=== PATIENT | female | born 1985 | race Caucasian/White ===

== ENCOUNTER 2023-09-18 07:42 | Inpatient (IN) | payer OTHER, MEDICAID, SELFPAY ==
[2023-09-18 07:42] VITALS: BP 153/98; PULSE 112; RESP 18; TEMP 37.1; O2SAT 99; BMI 25.0
--- NOTE | 2023-09-18 07:43 | ECG_ITS ---
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 Measurements Intervals Freedom Rate: 95 P: 60 MD: 156 QRS: 62 QRSD: 84 T: 38 QT: 346 QTc: 435 Interpretive Statements SINUS RHYTHM NONSPECIFIC T-WAVE ABNORMALITY No previous ECG available for comparison Electronically Signed On 09-18-2023 9:22:45 CDT by Kamaljit Silva M.D. [id number]
--- NOTE | 2023-09-18 07:47 | W.ED.PSYCHS ---
HPI - Psych General: Chief Complaint: Psychiatric Symptoms Stated Complaint: MHE Time Seen by Provider: 09/18/23 07:43 History of Present Illness: 37-year-old female with no known medical history who presents to the emergency room in apparent state of psychosis with the police today. Per their report she was found out in the hilliard with no clothes on. Apparently she had broken into someone's home and then cut a hole in a pool per their report. Apparently she had done all of this nude. When she arrived here she did appear somewhat psychotic. She was manic appearing and trying to dance with staff and somewhat uncooperative initially. Review of Systems General: Reports: ROS unobtainable due to medical condition Physical Exam Narrative: EXAM NARRATIVE: General: Alert, no acute distress. Skin: Warm, dry. Head: Normocephalic, atraumatic. Neck: Supple, trachea midline. Eye: Extraocular movements are intact. Ears, nose, mouth and throat: mucosa moist. Cardiovascular: Regular, tachycardic, normal peripheral perfusion. Respiratory: Lungs are clear to auscultation, respirations are non-labored, breath sounds are equal, Symmetrical chest wall expansion. Gastrointestinal: Soft, Nontender, Non distended Musculoskeletal: Normal ROM, no deformity. Neurological: Alert and oriented, No focal neurological deficit observed. Psychiatric: Patient appears manic. Flight of ideas. Somewhat uncooperative at times. Course Vital Signs: Vital signs: Vital Signs Temperature 98.8 F 09/18/23 08:06 Pulse Rate 112 H 09/18/23 08:06 Respiratory Rate 18 09/18/23 08:06 Blood Pressure 153/98 09/18/23 08:06 Pulse Oximetry 99 09/18/23 08:06 Oxygen Delivery Me thod Room Air 09/18/23 08:06 MDM - Psych Medical Decision Making Medical decision making: Differential diagnosis for patient with reported psychosis with plan for psychiatric admission including but not limited to and based on the above HPI, review of systems and physical exam: concerns for infection, alcohol intoxication, cardiac issues or other medical problems prior to psychiatric admission. Orders placed to evaluate differential diagnosis based on the above differential, HPI and physical exam labwork, ekg ordered to evaluate the pathologies and to clear the patient medically prior to psychiatric admission EKG: Time 8:53 AM. Rate 95. Normal sinus rhythm, No ST-T changes, no ectopy, normal MS & QRS intervals, This was reviewed and interpreted by myself the ER physician at 8:55 AM Lab Review: Laboratory results were reviewed and interpreted by myself the emergency room physician. - Medically cleared. - EKG shows no ischemic changes. - Blood alcohol level is negative, as well as salicylate and Tylenol. - Drug screen and urinalysis are pending. - No anemia. - BUN and creatinine are within normal limits. I reviewed the patient's medical record. Reexamination: Patient after receiving medications is much calmer. She is somewhat somnolent but is no longer psychotic appearing. She says she does not really remember this morning but she thinks she had a psychotic break secondary to her PTSD. She denies any drugs at this time. Consultation: I spoke with Dr. Lewis who is on-call for psychiatry and discussed the patient's case and he agrees to admission. Assessment and plan: Psychosis. -IM Geodon and Ativan were given. Improvement in symptoms. ? 96-hour hold is being placed. -Admission to neuropsychiatric unit for continued evaluation and treatment. - All lab work was reviewed and interpreted personally by myself, the ER physician - Evaluation and treatment of this problem were appropriate in the emergency setting Lab Data 09/18/23 08:51 09/18/23 08:51 Laboratory Results WBC 10.01 10^3/uL (3.29-11.43) 09/18/23 08:51 RBC 4.19 10^6/uL (3.85-5.65) 09/18/23 08:51 Hgb 11.60 g/dL (11.27-16.99) 09/18/23 08:51 Hct 35.4 % (36-47) L 09/18/23 08:51 MCV 84.5 fl (85-98) L 09/18/23 08:51 MCH 27.7 pg (27-33) 09/18/23 08:51 MCHC 32.8 g/dL (30-55) 09/18/23 08:51 RDW 14.6 % (12.1-15.1) 09/18/23 08:51 Plt Count 328 10^3/cmm (157-399) 09/18/23 08:51 MPV 11.2 fL (7.4-10.4) H 09/18/23 08:51 Neut % (Auto) 80.6 % 09/18/23 08:51 Lymph % (Auto) 12.6 % 09/18/23 08:51 [place] % (Auto) 5.7 % 09/18/23 08:51 Eos % (Auto) 0.1 % 09/18/23 08:51 Baso % (Auto) 0.7 % 09/18/23 08:51 Neut # (Auto) 8.07 10^3/uL (1.8-7.7) H 09/18/23 08:51 Lymph # (Auto) 1.3 10^3/uL (0.8-4.8) 09/18/23 08:51 [place] # (Auto) 0.6 10^3/uL (0.2-0.9) 09/18/23 08:51 Eos # (Auto) 0.0 10^3/uL (0.0-0.8) 09/18/23 08:51 Baso # (Auto) 0.1 10^3/uL (0.0-0.1) 09/18/23 08:51 Nucleated RBC % (auto) 0 % 09/18/23 08:51 Nucleated RBCs # 0.0 /100WBC 09/18/23 08:51 Sodium 142 mmol/L (136-145) 09/18/23 08:51 Potassium 3.5 mmol/L (3.5-5.1) 09/18/23 08:51 Chloride 109 mmol/L (98-107) H 09/18/23 08:51 Carbon Dioxide 20 mmol/L (22-29) L 09/18/23 08:51 Anion Gap 16.5 (5-19) 09/18/23 08:51 BUN 12 mg/dL (6-20) 09/18/23 08:51 Creatinine 0.7 mg/dL (0.5-0.9) 09/18/23 08:51 GFR Calculation 93.6 mL/min (90-130) 09/18/23 08:51 Glucose 105 mg/dL (65-115) 09/18/23 08:51 Calculated Osmolality 294 mOsm/kg (285-295) 09/18/23 08:51 Calcium 8.9 mg/dL (8.5-10.5) 09/18/23 08:51 Total Bilirubin 0.4 mg/dL (0.15-1.2) 09/18/23 08:51 AST 14 U/L (0-32) 09/18/23 08:51 ALT 15 U/L (0-33) 09/18/23 08:51 Alkaline Phosphatase 70 U/L (35-105) 09/18/23 08:51 Total Protein 7.2 g/dL (6.6-8.7) 09/18/23 08:51 Albumin 4.3 g/dL (3.5-5.2) 09/18/23 08:51 Globulin 2.9 g/dL (1.3-4.6) 09/18/23 08:51 TSH 2.17 uIU/mL (0.27-4.20) 09/18/23 08:51 Salicylates < 0.3 mg/dL (3-10) L 09/18/23 08:51 Acetaminophen < 5.0 ug/mL (10-30) L 09/18/23 08:51 Ethyl Alcohol < 10 mg/dL (0-10) 09/18/23 08:51 No radiology studies performed this visit Discharge Plan Discharge Patient Disposition: Admitted As Inpatient Clinical Impression: Acute psychosis Condition: Stable Coding Level of Care Code ED Medical Social Worker for Cherie Kaur
[2023-09-18] MEDS: ziprasidone 20 mg/mL SDV IM (08:04)
[2023-09-18] MEDS: LORazepam 2 mg/mL INJ 1 mL IM (08:04)
[2023-09-18] MEDS: water for injection-sterile 10 ML 2 ML (08:04)
[2023-09-18 08:06] VITALS: BP 153/98; PULSE 112; RESP 18; TEMP 37.1; O2SAT 99
--- NOTE | 2023-09-18 08:09 | PC.NURSE ---
PATIENT ATTEMPTED TO EXIT THE FACILITY AND STRUGGLES TO STAY IN ROOM. PATIENT GIVEN 20 GEODON AND 2 ATIVAN PER PROVIDER. BRENT VILLATORO BROUGHT IN CLOTHING AND BAG FROM PATIENTS CAR. ITEMS CHECKED BY BRENT CHIN, PLACED WITH SITTER.
--- NOTE | 2023-09-18 08:25 | PC.NURSE ---
PATIENT PLACED ON O2 MONITOR. PATIENT RESTING COMFORTABLY WITH RESPIRATIONS. PATIENT MUCH MORE COOPERATIVE. THIS NURSE ASKS IF SHE WAS ON ANY MEDICATIONS, PATIENT CALMLY STATES THAT I THINK IT WAS A PTSD BREAK. NURSE ASKED IF SHE NEEDED ANYTHING ELSE, SHE STATED NO. LIGHTS DIMMED. 1:[address]
[2023-09-18 09:06] LABS: Basophils # 0.1 10^3/uL (0.0-0.1); Basophils % 0.7 %; Eosinophils % 0.1 %; Hematocrit 35.4 % (36-47); Lymphocytes # 1.3 10^3/uL (0.8-4.8); Lymphocytes % 12.6 %; Mean Corpuscular HGB Conc 32.8 g/dL (30-55); Mean Corpuscular Hemoglobin 27.7 pg (27-33); Mean Corpuscular Volume 84.5 fl (85-98); Mean Platelet Volume 11.2 fL (7.4-10.4); Monocytes # 0.6 10^3/uL (0.2-0.9); Monocytes % 5.7 %; Neutrophils # 8.07 10^3/uL (1.8-7.7); Neutrophils % 80.6 %; Nucleated Red Blood Cells % 0 %; Platelet Count 328 10^3/cmm (157-399); Red Blood Count 4.19 10^6/uL (3.85-5.65); Red Cell Distribution Width 14.6 % (12.1-15.1); White Blood Count 10.01 10^3/uL (3.29-11.43)
[2023-09-18 09:28] LABS: Acetaminophen < 5.0 ug/mL (10-30); Alanine Aminotransferase 15 U/L (0-33); Albumin Level 4.3 g/dL (3.5-5.2); Alcohol Level < 10 mg/dL (0-10); Alkaline Phosphatase 70 U/L (35-105); Anion Gap 16.5 (5-19); Aspartate Amino Transferase 14 U/L (0-32); Blood Urea Nitrogen 12 mg/dL (6-20); Calcium 8.9 mg/dL (8.5-10.5); Carbon Dioxide 20 mmol/L (22-29); Chloride 109 mmol/L (98-107); Creatinine Clr Calc Pharmacy 105.6495; Globulin 2.9 g/dL (1.3-4.6); Glomerular Filtration Rate 93.6 mL/min (90-130); Glucose 105 mg/dL (65-115); Osmolality Calculated 294 mOsm/kg (285-295); Potassium 3.5 mmol/L (3.5-5.1); Salicylate < 0.3 mg/dL (3-10); Sodium 142 mmol/L (136-145); Thyroid Stimulating Hormone 2.17 uIU/mL (0.27-4.20); Total Bilirubin 0.4 mg/dL (0.15-1.2); Total Protein 7.2 g/dL (6.6-8.7)
[2023-09-18 12:21] LABS: HCG Qualitative Urine. Negative (Negative)
[2023-09-18 12:34] LABS: Amphetamines Screen Urine Positive (Negative); Barbiturates Screen Urine Negative (Negative); Benzodiazepines Screen Urine Positive (Negative); Cocaine Screen Urine Negative (Negative); Opiate Screen Urine Negative (Negative); PCP Screen Urine Negative (Negative); THC Screen Urine Negative (Negative)
[2023-09-18 12:37] LABS: Add Urine Culture? No; Bacteria Urine TRACE /hpf; Bilirubin Urine Neg (Negative); Blood Urine Neg (Negative); Glucose Urine UA Norm (Normal); Ketones Urine 2+ (Negative); Leukocyte Esterase Urine Negative (Negative); Nitrate Urine Negative (Negative); Protein Urine Neg (Negative); Specific Gravity, Urine 1.015 (1.005-1.030); Urine Appearance Clear (CLEAR); Urine Color Yellow (Yellow); Urobilinogen Urine Norm (Negative); pH Urine 6 (5-7)
[2023-09-18 13:39] VITALS: PULSE 93; RESP 14; O2SAT 96
[2023-09-18 13:45] VITALS: BP 121/73; PULSE 98; RESP 16; TEMP 36.9; O2SAT 100
[2023-09-18 14:00] VITALS: BP 121/73; PULSE 98; RESP 16; TEMP 36.9; O2SAT 100
[2023-09-18] MEDS: nicotine 2 mg Gum BUCCAL (14:53)
--- NOTE | 2023-09-18 18:18 | PC.NURSE ---
Patient brought to unit via wheelchair with security and ER staff. Patient cooperative and tearful on arrival. Patient cooperative during admission assessment. No contraband uncovered. no open wounds. Patient's questions answered.
[2023-09-18 19:32] VITALS: BP 132/82; PULSE 102; RESP 14; TEMP 36.8; O2SAT 97
[2023-09-19 06:00] VITALS: BP 110/70; PULSE 96; RESP 16; TEMP 36.7; O2SAT 95
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
[2023-09-19] MEDS: nicotine 2 mg Gum BUCCAL ×2 (07:32→15:19)
--- NOTE | 2023-09-19 11:05 | PC.NURSE ---
PT CURRENTLY DENIES SI/HI/AH/VH. PT CURRENTLY DENIES ANXIETY AND DEPRESSION. PT APPEARS WITH LARGE SMILE EVERY TIME SHE LOOK AT STAFF. PT WILL GIGGLED SLIGHTLY DURING MORNING ASSESSMENT QUESTIONS WITH UNMOVING GRIN. PT WAS COOPERATIVE WITH ASSESSMENT. PT CURRENT NEEDS ARE MET AT THIS TIME.
[2023-09-19] MEDS: ARIPiprazole 10 mg Tablet PO (13:43)
[2023-09-19 14:00] VITALS: BP 130/83; PULSE 90; RESP 16; TEMP 37; O2SAT 99
[2023-09-19 19:53] VITALS: BP 111/79; PULSE 80; RESP 17; TEMP 36.9; O2SAT 99
[2023-09-19] MEDS: hyDROXYzine 25 mg Capsule 50 MG PO (20:52)
[2023-09-20 06:24] VITALS: BP 117/73; PULSE 71; RESP 14; TEMP 36.9; O2SAT 98
[2023-09-20] MEDS: ARIPiprazole 10 mg Tablet PO (07:54)
--- NOTE | 2023-09-20 08:04 | PC.NURSE ---
During assessment, patient denies anxiety, depression, suicidal ideation, and homicidal ideation. Patient also denies AVH. Patient denies any questions, concerns, pain.
--- NOTE | 2023-09-20 08:05 | PC.NURSE ---
During assessment, patient denies anxiety, depression, suicidal ideation, and homicidal ideation. Patient also denies AVH. Patient denies any questions, concerns, pain.
--- NOTE | 2023-09-20 11:54 | P.NPUPN_ITS ---
Subjective NPU 2 Subjective: Patient presented today reporting that she was doing okay with the medication. Staff report her intrusive smile is less prominent today this is notable on direct observation. She was mostly focused on how long it was anticipated that she needed to be here. We discussed the importance of us knowing that she was having some significant resolution of her psychosis prior to discharge. She denied any side effects to the medication. Mental Status Exam 2 MSE Comments: This is a well-nourished well-developed white female in hospital scrubs with limited grooming but very intense eye contact. No abnormal movements except for mild psychomotor agitation. Mostly cooperative with exam in mild distress. Speech was normal rate and volume. Mood described as joyful, affect somewhat euphoric. Thought process mostly organized. Thought content: Patient denied current suicidal or homicidal ideation, there were no delusions reported however some concern for hyperreligious thinking, julieta with some reports of being in love and some guardedness which might reflect concerns about legal ramifications of what she were to say in the interview, she denied auditory or visual hallucinations. Attention and concentration were mostly intact and memory appeared mostly reliable but none were formally tested. She is alert and oriented to person and place. Insight, judgment appear limited and impulse control impaired. Vitals/I&O/Wt Last Vital Signs Temp 98.5 F 09/20/23 06:24 Pulse 71 09/20/23 06:24 Resp 14 09/20/23 06:24 BP 117/73 09/20/23 06:24 Pulse Ox 98 09/20/23 06:24 O2 Del Method Room Air 09/20/23 06:24 Data NPU 09/18/23 08:51 09/18/23 08:51 A&P Assessment and plan (1) Acute psychosis: (2) PTSD (post-traumatic stress disorder): (3) History of borderline personality disorder: (4) Methamphetamine-induced psychotic disorder: Plan This is a 37-year-old white female with a history of mental health issues, including self-harm and a history of psychiatric medication use. The patient's recent behavior of walking naked through the countryside and shouting scripture is concerning and may suggest a psychotic episode. The patient admits to a history of methamphetamine use, which could contribute to their current mental state. She was open to taking medication to address the psychosis noted at presentation. 1. Encourage individual, group and milieu therapy. 2. Recommend sober living treatment at the highest level of care to which the patient is willing to commit. 3. Continue q-15 minute checks for safety.? 4.?Start Abilify 10 mg p.o. daily to assist with rapid addressing of noted psychosis likely secondary to substances. 5.?Will attempt to gather collateral information. Involuntary Hold Information 2 96 Hour Hold: 96 Hour Involuntary Admission: No Attestations NPU 2 Medical Necessity Statement*: Inpatient hospitalization is medically necessary and the clinically appropriate intervention at this time. We will monitor and adjust medications as indicated. Her likely length of stay 3-5 days. Coding Level of Care Code Acute Code for [facility] Fwd Diagnoses Acute psychosis F23 PTSD (post-traumatic stress disorder) F43.10 History of borderline personality disorder Z86.59 Methamphetamine-induced psychotic disorder F15.95
[2023-09-20] MEDS: nicotine 2 mg Gum BUCCAL ×2 (13:45→18:49)
[2023-09-20 14:00] VITALS: BP 125/61; PULSE 88; RESP 20; TEMP 37.2; O2SAT 98
[2023-09-20 20:21] VITALS: BP 118/75; PULSE 84; RESP 16; TEMP 36.9; O2SAT 99
[2023-09-20] MEDS: hyDROXYzine 25 mg Capsule 50 MG PO (20:57)
[2023-09-21 06:22] VITALS: BP 98/65; PULSE 71; RESP 16; TEMP 36.9; O2SAT 98
[2023-09-21] MEDS: ARIPiprazole 10 mg Tablet PO (08:11)
--- NOTE | 2023-09-21 08:53 | PC.NURSE ---
RESTING IN BED, AROUSES TO VOICE. DENIES PAIN. DENIES SI/HI AND AVH AT THIS TIME. PTS 96 HOUR HOLD IS UP TOMORROW AND PT IS ANXIOUS TO DISCHARGE TODAY OR TOMORROW. RATES ANXIETY AND DEPRESSION 0/10. PT IS CALM AND COOPERATIVE. ALL QUESTIONS ANSWERED AND SUPPORT VOICED.
[2023-09-21] MEDS: nicotine 2 mg Gum BUCCAL ×2 (09:23→17:27)
--- NOTE | 2023-09-21 12:59 | P.NPUPN_ITS ---
Subjective NPU 2 Subjective: Patient presented today reporting that she is feeling better overall. No inappropriate smiling noted per staff reports her direct observation. We discussed her continuing the Abilify and having outpatient services to determine what to do with that long-term. We discussed the likelihood of discharge in the morning with continued improvement. Mental Status Exam 2 MSE Comments: This is a well-nourished well-developed white female in hospital scrubs with adequate grooming and eye contact. No abnormal movements except for mild psychomotor agitation. Mostly cooperative with exam in no acute distress. Speech was normal rate and volume. Mood described as good, affect congruent. Thought process mostly organized. Thought content: Patient denied current suicidal or homicidal ideation, there were no delusions reported or noted, she denied auditory or visual hallucinations. Attention and concentration were mostly intact and memory appeared mostly reliable but none were formally tested. She is alert and oriented x 3. Insight, judgment appear limited and impulse control improving. Vitals/I&O/Wt Last Vital Signs Temp 98.4 F 09/21/23 06:22 Pulse 71 09/21/23 06:22 Resp 16 09/21/23 06:22 BP 98/65 09/21/23 06:22 Pulse Ox 98 09/21/23 06:22 O2 Del Method Room Air 09/21/23 06:22 Data NPU 09/18/23 08:51 09/18/23 08:51 A&P Assessment and plan (1) Acute psychosis: (2) PTSD (post-traumatic stress disorder): (3) History of borderline personality disorder: (4) Methamphetamine-induced psychotic disorder: Plan This is a 37-year-old white female with a history of mental health issues, including self-harm and a history of psychiatric medication use. The patient's recent behavior of walking naked through the countryside and shouting scripture is concerning and may suggest a psychotic episode. The patient admits to a history of methamphetamine use, which could contribute to their current mental state. She was open to taking medication to address the psychosis noted at presentation. 1. Encourage individual, group and milieu therapy. 2. Recommend sober living treatment at the highest level of care to which the patient is willing to commit. 3. Continue q-15 minute checks for safety.? 4.?Started Abilify 10 mg p.o. daily to assist with rapid addressing of noted psychosis likely secondary to substances. 5.? Current plan for discharge in the morning. Involuntary Hold Information 2 96 Hour Hold: 96 Hour Involuntary Admission: No Attestations NPU 2 Medical Necessity Statement*: Inpatient hospitalization is medically necessary and the clinically appropriate intervention at this time. We will monitor and adjust medications as indicated. Her likely length of stay 1-3 days. Coding Level of Care Code Acute Code for g Fwd Diagnoses Acute psychosis F23 PTSD (post-traumatic stress disorder) F43.10 History of borderline personality disorder Z86.59 Methamphetamine-induced psychotic disorder F15.953
[2023-09-21 13:49] VITALS: BP 116/74; PULSE 83; RESP 20; TEMP 37; O2SAT 99
[2023-09-21 20:22] VITALS: BP 113/72; PULSE 71; RESP 15; TEMP 36.8; O2SAT 99
[2023-09-21] MEDS: hyDROXYzine 25 mg Capsule 50 MG PO (20:39)
[2023-09-22] MEDS: trazodone 50 mg Tablet PO (00:01)
[2023-09-22 06:00] VITALS: BP 98/66; PULSE 78; RESP 18; TEMP 36.8; O2SAT 98
[2023-09-22] MEDS: nicotine 2 mg Gum BUCCAL (07:37)
[2023-09-22] MEDS: ARIPiprazole 10 mg Tablet PO (08:59)
--- NOTE | 2023-09-22 11:16 | W.PM.NPUDCS ---
Diagnoses at Discharge Discharge Diagnosis (1) Acute psychosis: Status: Acute (2) PTSD (post-traumatic stress disorder): Status: Acute (3) History of borderline personality disorder: Status: Acute (4) Methamphetamine-induced psychotic disorder: Status: Acute Reason for Visit Reason for Visit: MHE Involuntary Hold Information 96 Hour Hold: 96 Hour Involuntary Admission: No Mental Status Exam MSE Comments: This is a well-nourished well-developed white female in hospital scrubs with adequate grooming and eye contact. No abnormal movements except for mild psychomotor agitation. Mostly cooperative with exam in no acute distress. Speech was normal rate and volume. Mood described as good, affect congruent. Thought process mostly organized. Thought content: Patient denied current suicidal or homicidal ideation, there were no delusions reported or noted, she denied auditory or visual hallucinations. Attention and concentration were mostly intact and memory appeared mostly reliable but none were formally tested. She is alert and oriented x 3. Insight, judgment appear limited and impulse control improving. Discharge Data Studies Completed and Pending: Laboratory Results WBC 10.01 10^3/uL (3. 29-11.43) 09/18/23 08:51 RBC 4.19 10^6/uL (3.8 5-5.65) 09/18/23 08:51 Hgb 11.60 g/dL (11.27 -16.99) 09/18/23 08:51 Hct 35.4 % (36-47) L 09/18/23 08:51 MCV 84.5 fl (85-98) L 09/18/23 08:51 MCH 27.7 pg (27-33) 09/18/23 08:51 MCHC 32.8 g/dL (30-55) 09/18/23 08:51 RDW 14.6 % (12.1-15.1 ) 09/18/23 08:51 Plt Count 328 10^3/cmm (157 -399) 09/18/23 08:51 MPV 11.2 fL (7.4-10.4 ) H 09/18/23 08:51 Neut % (Auto) 80.6 % 09/18/23 08:51 Lymph % (Auto) 12.6 % 09/18/23 08:51 Bertie % (Auto) 5.7 % 09/18/23 08:51 Eos % (Auto) 0.1 % 09/18/23 08:51 Baso % (Auto) 0.7 % 09/18/23 08:51 Neut # (Auto) 8.07 10^3/uL (1.8 -7.7) H 09/18/23 08:51 Lymph # (Auto) 1.3 10^3/uL (0.8- 4.8) 09/18/23 08:51 [place] # (Auto) 0.6 10^3/uL (0.2- 0.9) 09/18/23 08:51 Eos # (Auto) 0.0 10^3/uL (0.0- 0.8) 09/18/23 08:51 Baso # (Auto) 0.1 10^3/uL (0.0- 0.1) 09/18/23 08:51 Nucleated RBC % (a uto) 0 % 09/18/23 08:51 Nucleated RBCs # 0.0 /100WBC 09/18/23 08:51 Sodium 142 mmol/L (136-1 45) 09/18/23 08:51 Potassium 3.5 mmol/L (3.5-5 .1) 09/18/23 08:51 Chloride 109 mmol/L (98-10 7) H 09/18/23 08:51 Carbon Dioxide 20 mmol/L (22-29) L 09/18/23 08:51 Anion Gap 16.5 (5-19) 09/18/23 08:51 BUN 12 mg/dL (6-20) 09/18/23 08:51 Creatinine 0.7 mg/dL (0.5-0. 9) 09/18/23 08:51 GFR Calculation 93.6 mL/min (90-1 30) 09/18/23 08:51 Glucose 105 mg/dL (65-115 ) 09/18/23 08:51 Calculated Osmolal ity 294 mOsm/kg (285- 295) 09/18/23 08:51 Calcium 8.9 mg/dL (8.5-10 .5) 09/18/23 08:51 Total Bilirubin 0.4 mg/dL (0.15-1 .2) 09/18/23 08:51 AST 14 U/L (0-32) 09/18/23 08:51 ALT 15 U/L (0-33) 09/18/23 08:51 Alkaline Phosphata se 70 U/L (35-105) 09/18/23 08:51 Total Protein 7.2 g/dL (6.6-8.7 ) 09/18/23 08:51 Albumin 4.3 g/dL (3.5-5.2 ) 09/18/23 08:51 Globulin 2.9 g/dL (1.3-4.6 ) 09/18/23 08:51 TSH 2.17 uIU/mL (0.27 -4.20) 09/18/23 08:51 HCG, Qual Negative (Negati ve) 09/18/23 12:09 Urine Color Yellow (Yellow) 09/18/23 12:09 Urine Appearance Clear (CLEAR) 09/18/23 12:09 Urine pH 6 (5-7) 09/18/23 12:09 Ur Specific [place] 1.015 (1.005-1.0 30) 09/18/23 12:09 Urine Protein Neg (Negative) 09/18/23 12:09 Urine Glucose (UA) Norm (Normal) 09/18/23 12:09 Urine Ketones 2+ (Negative) H 09/18/23 12:09 Urine Blood Neg (Negative) 09/18/23 12:09 Urine Nitrate Negative (Negati ve) 09/18/23 12:09 Urine Bilirubin Neg (Negative) 09/18/23 12:09 Urine Urobilinogen Norm mg/dL (Negat nevaeh) 09/18/23 12:09 Ur Leukocyte [place] Negative (Negati ve) 09/18/23 12:09 Urine RBC None /hpf (0-2) 09/18/23 12:09 Urine WBC None /hpf (0-5) 09/18/23 12:09 Ur Squamous Epith Cells None /hpf (0-5) 09/18/23 12:09 Amorphous Sediment Not Reportable 09/18/23 12:09 Urine Bacteria Trace /hpf (NONE) 09/18/23 12:09 Salicylates < 0.3 mg/dL (3-10 ) L 09/18/23 08:51 Urine Opiates Scre en Negative ng/mL (N egative) 09/18/23 12:09 Acetaminophen < 5.0 ug/mL (10-3 0) L 09/18/23 08:51 Ur Barbiturates Sc reen Negative ng/mL (N egative) 09/18/23 12:09 Ur Phencyclidine S crn Negative ng/mL (N egative) 09/18/23 12:09 Ur Amphetamines Sc reen Positive ng/mL (N egative) H 09/18/23 12:09 U Benzodiazepines Scrn Positive ng/mL (N egative) H 09/18/23 12:09 Urine Cocaine Scre en Negative ng/mL (N egative) 09/18/23 12:09 U Marijuana (THC) Screen Negative ng/mL (N egative) 09/18/23 12:09 Ethyl Alcohol < 10 mg/dL (0-10) 09/18/23 08:51 Vitals: Last Vital Signs Temp 98.3 F 09/22/23 06:00 Pulse 78 09/22/23 06:00 Resp 18 09/22/23 06:00 BP 98/66 09/22/23 06:00 Pulse Ox 98 09/22/23 06:00 O2 Del Method Room Air 09/22/23 06:00 Discharge Plan Discharge Patient Disposition: Home Condition: Stable Prescriptions: New trazodone 50 mg Tablet 50 mg PO BEDTIME PRN (Reason: Sleep) 30 Days Qty: 30 1RF hydroxyzine pamoate 25 mg Capsule 50 mg PO Q6H PRN (Reason: Anxiety) 30 Days Qty: 120 1RF aripiprazole 10 mg Tablet 10 mg PO DAILY 30 Days Qty: 30 1RF No Action No Known Home Medications Discharge Orders: Discharge Order (Routine); Ordered 09/22/23 Ordered By: Vj Lewis Referrals: [facility] [Other] (You will be contacted by email regarding the program) Lizette Ferrera MD [Primary Care Provider] - Discharge Diet: Regular Discharge Activity: Resume usual activity Patient Instructions: Opioid Safety Discharge Attestations NPU Time Spent in Discharge Care*: less than 30 min Specific Discharge Activities: Specific discharge activities: educating patient, discussing with case management associate/social workers/dc planners, documenting/other paperwork and evaluating patient/reviewing data Coding Level of Care Code Acute Code for Chg Fwd Diagnoses Acute psychosis F23 PTSD (post-traumatic stress disorder) F43.10 History of borderline personality disorder Z86.59 Methamphetamine-induced psychotic disorder F15.701
[2023-09-22 11:30] VITALS: BP 98/66; PULSE 78; RESP 18; TEMP 36.8; O2SAT 98
--- NOTE | 2023-09-22 13:22 | PC.NURSE ---
Discharge Note Patient discharged to [home] via [ambulation to POV] accompanied by [her father]. Discharge instructions reviewed with patient and/or business development representative. Mobile pharmacy medications and/or prescriptions provided. Belongings/home medications returned.
== END 2023-09-22 13:23 | disposition home or self-care (01) | DRG 897 ==
LOC: ER 11:12 → NP 13:16
PROVIDERS: Admitting Provider Psychiatry & Neurology Psychiatry; Emergency Provider Emergency Medicine; Family Provider Family Medicine; PCP Family Medicine; Visit Provider Psychiatry & Neurology Psychiatry
DX: F15.959 Other stimulant use, unspecified with stimulant-induced psychotic disorder, unspecified (principal); F43.10 Post-traumatic stress disorder, unspecified; F17.210 Nicotine dependence, cigarettes, uncomplicated; F60.3 Borderline personality disorder
CPT/HCPCS: 36415; 80053; 80306; 80307; 81001; 81025; 84443; 85025; 93005; 96372; 97150; 97165; 99285; J2060; J3486

== ENCOUNTER 2024-09-06 19:21 | Emergency (ER) | payer MEDICAID, SELFPAY ==
--- NOTE | 2024-09-06 19:24 | ED_ITS ---
HPI - General Adult 2 General: Chief complaint: General Medical Stated complaint: Fit for Confin, Time Seen by Provider: 09/06/24 19:23 History of Present Illness: 38-year-old female with no past medical history who presents the emergency room with police for a fit for confinement/medical clearance exam. She takes no medications. She is a bit tearful but otherwise reports no pain. No chest pain. No abdominal pain. No vomiting. Related Data Home Medications ?Medication ?Instructions ?Recorded ?Confirmed amoxicillin 125 mg-potassium tab PO 03/24/24 03/24/24 clavulanate 31.25 mg chewable tablet benzonatate 200 mg capsule 200 mg PO TID 03/24/2402/28 Previous Rx's ?Medication ?Instructions ?Recorded albuterol sulfate 90 mcg/actuation 2 inh inhalation Q4 H PRN shortness 03/24/24 aerosol inhaler of breath or wheezing #6.7 g cameron azelastine 205.5 mcg (0.15 %) 2 spray intranasal Q12H #30 mL 03/24/24 nasal spray levofloxacin 750 mg tablet 750 mg PO DAILY 7 days #7 t abs 03/24/24 prednisone 20 mg tablet 60 mg (3 x 20 mg) PO DAILY 5 days 03/24/24 #15 tabs cephalexin 500 mg tablet 500 mg PO TID 5 days #15 tab s 09/06/24 Allergies Allergy/AdvReac Type Severity Reaction Status Date / Time Sulfa (Sulfonamide Allergy ADR-Diarrhe Verified 03/24/24 11:01 Antibiotics) a Review of Systems 2 Narrative: Constitutional symptoms: Negative except as documented in HPI. Skin symptoms: Negative except as documented in HPI. Eye symptoms: Negative except as documented in HPI. ENMT symptoms: Negative except as documented in HPI. Respiratory symptoms: Negative except as documented in HPI. Cardiovascular symptoms: Negative except as documented in HPI. Gastrointestinal symptoms: Negative except as documented in HPI. Genitourinary symptoms: Negative except as documented in HPI. Musculoskeletal symptoms: Negative except as documented in HPI. Neurologic symptoms: Negative except as documented in HPI. Psychiatric symptoms: Negative except as documented in HPI. Endocrine symptoms: Negative except as documented in HPI. PFSH ED 2 PFSH: Social History Smoking and tobacco/nicotine status: never used tobacco/nicotine Physical Exam 2 Narrative: EXAM NARRATIVE: General: Alert, no acute distress. Skin: Warm, dry. Head: Normocephalic, atraumatic. Neck: Supple, trachea midline. Eye: Extraocular movements are intact. Ears, nose, mouth and throat: mucosa moist. Cardiovascular: Regular, Normal peripheral perfusion. Respiratory: Lungs are clear to auscultation, respirations are non-labored, breath sounds are equal, Symmetrical chest wall expansion. Gastrointestinal: Soft, Nontender, Non distended Musculoskeletal: Normal ROM, no deformity. Neurological: Alert and oriented, No focal neurological deficit observed. Psychiatric: Cooperative, somewhat tearful Course 2 Vital Signs: Vital signs: Vital Signs Pulse Rate 119 H 09/06/24 19:27 Respiratory Rate 18 09/06/24 19:27 Blood Pressure 114/68 09/06/24 19:27 Pulse Oximetry 98 09/06/24 19:27 MDM - General Adult Medical Decision Making Differential diagnosis: Patient here for medical clearance for incarceration. concerns for infection, alcohol intoxication, cardiac issues or other medical problems prior to psychiatric admission. Workup: labwork, ekg ordered to evaluate the pathologies and to clear the patient medically prior to psychiatric admission EKG: Time 1933. Rate 98. Normal sinus rhythm, No ST-T changes, no ectopy, normal WI & QRS intervals, This was reviewed and interpreted by myself the ER physician at 1940. Lab Review: Laboratory results were reviewed and interpreted by myself the emergency room physician. - Medically cleared after fluids and antibiotics. Heart rate has come down. - EKG shows no ischemic changes. - Blood alcohol level is is positive at 155. She is down from 200 earlier per police report, -Tylenol and salicylate levels are negative. - Drug screen is positive for methamphetamine and marijuana - Urinalysis does show possible infection so Rocephin was given with fluids. - No anemia. - BUN and creatinine are within normal limits. ?Sodium is slightly elevated at 146 with a borderline low bicarb. A liter of fluids is being given. Reexamination: Patient has been little somnolent but arousable. Heart rate is dropped down into the 80s from 119 on presentation. Fluids are given and antibiotics given. No altered mental status. No focal motor deficits. Assessment and plan: Urinary tract infection Alcohol intoxication Medical clearance Hypernatremia Dehydration Polysubstance abuse - Patient cleared for incarceration after fluids and antibiotics. Continue antibiotics in custodial. - All lab work was reviewed and interpreted personally by myself, the ER physician - Evaluation and treatment of this problem were appropriate in the emergency setting Lab Data 09/06/24 20:01 09/06/24 20:01 Laboratory Results WBC 6.33 10^3/uL (3.29-11.43) 09/06/24 20: RBC 4.58 10^6/uL (3.85-5.65) 09/06/24 20: Hgb 12.10 g/dL (11.27-16.99) 09/06/24 20: Hct 37.9 % (36-47) 09/06/24 20: MCV 82.8 fl (85-98) L 09/06/24 20: MCH 26.4 pg (27-33) L 09/06/24 20: MCHC 31.9 g/dL (30-55) 09/06/24 20: RDW 16.2 % (12.1-15.1) H 09/06/24 20: Plt Count 379 10^3/cmm (157-399) 09/06/24 20: MPV 11.1 fL (7.4-10.4) H 09/06/24 20: Neut % (Auto) 53.5 % 09/06/24 20: Lymph % (Auto) 25.4 % 09/06/24 20: [place] % (Auto) 9.0 % 09/06/24 20: Eos % (Auto) 9.8 % 09/06/24 20: Baso % (Auto) 2.1 % 09/06/24 20: Neut # (Auto) 3.39 10^3/uL (1.8-7.7) 09/06/24 20: Lymph # (Auto) 1.6 10^3/uL (0.8-4.8) 09/06/24 20: [place] # (Auto) 0.6 10^3/uL (0.2-0.9) 09/06/24 20: Eos # (Auto) 0.6 10^3/uL (0.0-0.8) 09/06/24 20:01 Baso # (Auto) 0.1 10^3/uL (0.0-0.1) 09/06/24 20:01 Nucleated RBC % (auto) 0 % 09/06/24 20: Nucleated RBCs # 0.0 /100WBC 09/06/24 20:01 Sodium 146 mmol/L (136-145) H 09/06/24 20:01 Potassium 4.0 mmol/L (3.5-5.1) 09/06/24 20: Chloride 109 mmol/L (98-107) H 09/06/24 20:01 Carbon Dioxide 21 mmol/L (22-29) L 09/06/24 20:01 Anion Gap 20.0 (5-19) H 09/06/24 20:01 BUN 15 mg/dL (6-20) 09/06/24 20: Creatinine 0.8 mg/dL (0.5-0.9) 09/06/24 20: GFR Calculation 79.9 mL/min (90-130) L 09/06/24 20: Glucose 86 mg/dL (65-115) 09/06/24 20:01 Calculated Osmolality 302 mOsm/kg (285-295) H 09/06/24 20:01 Calcium 9.1 mg/dL (8.5-10.5) 09/06/24 20: Total Bilirubin 0.2 mg/dL (0.15-1.2) 09/06/24 20:01 AST 16 U/L (0-32) 09/06/24 20: ALT 13 U/L (0-33) 09/06/24 20: Alkaline Phosphatase 71 U/L (35-105) 09/06/24 20: Total Protein 7.2 g/dL (6.6-8.7) 09/06/24 20: Albumin 4.2 g/dL (3.5-5.2) 09/06/24 20: Globulin 3.0 g/dL (1.3-4.6) 09/06/24 20: TSH 1.65 uIU/mL (0.27-4.20) 09/06/24 20:01 HCG, Qual Negative (Negative) 09/06/24 19:53 Urine Color Dark yellow (Yellow) A 09/06/24 19:53 Urine Appearance Clear (CLEAR) 09/06/24 19:53 Urine pH 5.0 (5-7) 09/06/24 19:53 Ur Specific [place] 1.033 (1.005-1.030) H 09/06/24 19:53 Urine Protein Trace (Negative) A 09/06/24 19:53 Urine Glucose (UA) Negative (Normal) 09/06/24 19:53 Urine Ketones Trace (Negative) 09/06/24 19:53 Urine Blood Negative (Negative) 09/06/24 19:53 Urine Nitrate Positive (Negative) A 09/06/24 19:53 Urine Bilirubin Negative (Negative) 09/06/24 19:53 Urine Urobilinogen 1.0 mg/dL (Negative) 09/06/24 19:53 Ur Leukocyte Esterase Negative (Negative) 09/06/24 19:53 Urine RBC 0-2 /hpf (0-2) 09/06/24 19:53 Urine WBC 11-20 /hpf (0-5) H 09/06/24 19:53 Ur Squamous Epith Cells 6-10 /hpf (0-5) 09/06/24 19:53 Amorphous Sediment Not Reportable 09/06/24 19:53 Urine Bacteria 1+ /hpf (NONE) H 09/06/24 19:53 Hyaline Casts 5.77 /lpf 09/06/24 19:53 Salicylates < 0.3 mg/dL (3-10) L 09/06/24 20:01 Urine Opiates Screen Negative ng/mL (Negative) 09/06/24 19:53 Acetaminophen < 5.0 ug/mL (10-30) L 09/06/24 20:01 Ur Barbiturates Screen Negative ng/mL (Negative) 09/06/24 19:53 Ur Phencyclidine Scrn Negative ng/mL (Negative) 09/06/24 19:53 Ur Amphetamines Screen Positive ng/mL (Negative) H 09/06/24 19:53 U Benzodiazepines Scrn Negative ng/mL (Negative) 09/06/24 19:53 Urine Cocaine Screen Negative ng/mL (Negative) 09/06/24 19:53 U Marijuana (THC) Screen Positive ng/mL (Negative) H 09/06/24 19:53 Ethyl Alcohol 155 mg/dL (0-10) H 09/06/24 20:01 No radiology studies performed this visit Discharge Plan Discharge Patient Disposition: Home Clinical Impression: Medical clearance for incarceration, Hypernatremia, Dehydration, Alcohol intoxication, UTI (urinary tract infection) Condition: Stable Prescriptions: New cephalexin 500 mg tablet 500 mg PO TID 5 Days Qty: 15 0RF No Action amoxicillin-pot clavulanate 125-31.25 mg tablet,chewable PO benzonatate 200 mg capsule 200 mg PO TID levofloxacin 750 mg tablet 750 mg PO DAILY 7 Days Qty: 7 0RF prednisone 20 mg tablet 60 mg PO DAILY 5 Days Qty: 15 0RF albuterol sulfate 90 mcg/actuation HFA aerosol inhaler 2 inh inhalation Q4H PRN (Reason: shortness of breath or wheezing) Qty: 6.7 0RF azelastine 205.5 mcg (0.15 %) spray,non-aerosol 2 spray intranasal Q12H Qty: 30 0RF Rx Instructions: administer into each nostril Discharge Orders: Discharge ED (Routine); Ordered 09/06/24 Ordered By: Marilin Montesinos Referrals: Lizette Ferrera MD [Primary Care Provider, Family Practice] Patient Instructions: Dehydration (ED), Urinary Tract Infection in Women (ED), Alcohol Intoxication (ED), Opioid Safety, Pain Management, Patient Portal & [place] Instructions Activity Restrictions/Additional Instructions: Thank you for choosing [facility] for your healthcare needs today. You have been screened and evaluated and felt safe for discharge. Health conditions do change or evolve sometimes and as such it is important that you follow up with your Primary Doctor to be re checked, 3-5 days is a general good time frame for follow up. You are always welcome to return to the ED for re assessment if your symptoms are worsening or you have new concerns Print Language: Icelandic Coding Level of Care Code ED Senior Director Of Strategy for Cherie Kaur
--- OUTSIDE RECORDS SUMMARY | 2024-09-06 19:25 | XMS_ITS | Continuity of Care Document ---
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 tetrics) OUTPATIENT [id number] ALANA Aggarwal 07/05 Released w/o Limitations [facility](O bstetri cs) [facility] Outpatient Encounter [id number] 05/[facility] En[facility] [id number] 06/25 [facility] Outpatient Encounter [id number] SAMANTHA PRUITT 09/19 [facility] [place] [facility] Outpatient Encounter [id number] 09/28 [place] [facility] Outpatient Encounter [id number] RUSSOM-EAR LSPATRICIA 10/05 [facility] OFF/OP EST JUNE X REQ PHY/QHP [id number] Diagnos is: ICD-10- CM N39.0 Urinary tract infecti on, site not specifi ed ISAIAH SHERIDAN 10/19 [facility] Outpatient Encounter [id number] 01/22 [facility] Outpatient Encounter [id number] PIEDAD PRICE 01/22 [facility] Outpatient Encounter [id number] 01/28 [facility] Outpatient Encounter [id number] Diagnos is: ICD-10- CM Z00.00 Encntr for general adult medical exam w/o abnorma l finding s PIEDAD PRICE R 02/07 [facility] Outpatient Encounter [id number] 02/08 [facility] Outpatient Encounter [id number] 02/13 [facility] OFF/OP EST JUNE X REQ PHY/QHP [id number] Diagnos is: ICD-10- CM R09.81 Nasal congest ion CUSTRED,TO RRI J 03/20 [facility] Outpatient Encounter [id number] 04/04 [facility] Outpatient Encounter [id number] 04/25 [facility] Outpatient Encounter [id number] 05/22 [facility] Outpatient Encounter [id number] 08/05 [facility] Procedures Combined list of: 1) Procedures from Department of [facility] Affairs facilities going back up to thelast 18 months, not all [place] non-surgical procedures are included; 2) All procedures from the Department of Defense facilities. Procedure Procedure Type Code Date Perfomer Comments Sourc e OB Services Antepartum Care Only Subsequent Single Visit OB Services Antepartum Care Only Subsequent Single Visit 0502F 7 BLAYNE CORBETT OB Services Antepartum Care Only First Visit, With Report OB Services Antepartum Care Only First Visit, With Report 0500F 7 BLAYNE CORBETT Visual Casillas Test Extended Examination Visual Casillas Test Extended Examination 51281 7 YAMIL, TAMY Atkinson Ophthalmological New Patient Start Comprehensive Care Ophthalmological New Patient Start Comprehensive Care 04274 7 YAMIL, TAMY Atkinson Determination Of Refractive State Determination Of Refractive State 18442 7 YAMIL, TAMY Atkinson Vaginal Wet [place] Vaginal [place] 18202 7 ELAINE RICK Screening papanicolaou smear; obtaining, preparing and conveyance of cervical or vaginal smear to laboratory 7 ELAINE RICK Psychologic Testing And Report Administered By Computer Psychologic Testing And Report Administered By Computer 10578 6 PATRICIA KIM [facility] INJECTION, DEXAMETHASONE ACETATE, 1 MG 5 DoD SKIN TEST; TUBERCULOSIS, INTRADERMAL 5 [facility] SUBSEQ CARE VISIT () [EXCLS:PATIENTS WHO ARE SEEN FOR A CONDITION UNREL TO / CARE (EG,AN UP RESPIR INFECT;PATIENTS SEEN FOR CONSULTATION ONLY,NOT FOR CONT CARE)] 7 [facility] ULTRASOUND, UTERUS, REAL TIME WITH IMAGE DOCUMENTATION, AND MATERNAL EVALUATION PLUS DETAILED ANATOMIC EXAMINATION,TRANSABDO MARQUITA APPROACH; SINGLE OR FIRST GESTATION 7 [facility] SUBSEQ CARE VISIT () [EXCLS:PATIENTS WHO ARE SEEN FOR A CONDITION UNREL TO / CARE (EG,AN UP RESPIR INFECT;PATIENTS SEEN FOR CONSULTATION ONLY,NOT FOR CONT CARE)] 7 [facility] INITIAL CARE VISIT (REPORT AT 1ST ENCOUN W HEALTH PRODUCTION COORDINATOR PROVIDING OBSTETRIC CARE. REPORT ALSO DATE OF VISIT &,IN A SEPARATE FIELD,THE DATE OF THE LAST MENSTRUAL PERIOD) 7 [facility] COLLECTION OF VENOUS BLOOD BY VENIPUNCTURE 7 [facility] VISUAL FIELD EXAM,UNILAT/BI,INTERP &REP;EXT EXM(EG,GOLDMANN VIS FLD,AT LEAST 3 ISOP PLOT&STAT DET W/IN CARMELITA 30DEG/QUANT,AUTO THRSH SAM,OCT G-1,32/42,HUMP VIS FLD ANAL FULL THRSH 30-2,24-2, OR 30/60-2) 7 DoD DETERMINATION OF REFRACTIVE STATE 7 [facility] SMEAR, PRIMARY SOURCE WITH INTERPRETATION; WET MOUNT FOR INFECTIOUS AGENTS (EG, SALINE, DRE INK, JOHN PREPS) 7 DoD PSYCHOLOGICAL TSTING (INCL PSYCHODIAG ASSESSMNT, EMOTITY, INTELLECTUAL ABILITIES, PERSONALITY &PSYCHOPATHOLOGY, EG, MMPI), ADMINISTERED COMPUTER, W QUALIFIED HEALTH PRODUCTION COORDINATOR INTERPRET &RPT 6 [facility] EDUCATIONAL SUPPLIES, SUCH BOOKS, TAPES, AND PAMPHLETS, FOR THE PATIENT'S EDUCATION AT COST TO PHYSICIAN OR OTHER QUALIFIED HEALTH PRODUCTION COORDINATOR 6 DoD INTRAVENOUS INFUSION, HYDRATION; INITIAL, 31 MINUTES TO 1 HOUR 6 DoD SUPP &MATERIAL (EXCEPT SPECTACLE),PROVID,THE PHYS/OTH QUALIFIED HEALTH PRODUCTION COORDINATOR OVER &ABOVE THOSE USUALLY INCLD W THE OFFICE VISIT/OTH SER RENDERED (LIST DRUG,TRAYS,SUPP,OR MATERIAL PROVID) 6 DoD COLLECTION OF VENOUS BLOOD BY VENIPUNCTURE 6 DoD ANALYSIS OF CLINICAL DATA STORED IN COMPUTERS (EG, ECGS, BLOOD PRESSURES, HEMATOLOGIC DATA) 5 DoD COLLECTION OF VENOUS BLOOD BY VENIPUNCTURE 5 DoD ANTHRAX VACCINE, FOR SUBCUTANEOUS OR INTRAMUSCULAR USE 5 DoD SUPP &MATERIAL (EXCEPT SPECTACLE),PROVID,THE PHYS/OTH QUALIFIED HEALTH PRODUCTION COORDINATOR OVER &ABOVE THOSE USUALLY INCLD W THE OFFICE VISIT/OTH SER RENDERED (LIST DRUG,TRAYS,SUPP,OR MATERIAL PROVID) 5 DoD COLLECTION OF VENOUS BLOOD BY VENIPUNCTURE 5 DoD HEPATITIS A AND HEPATITIS B VACCINE (HEPA-HEPB), ADULT DOSAGE, FOR INTRAMUSCULAR USE 5 DoD Social History Combined list of available smoking, tobacco, and other social history from Department of Defense and Veterans Affairs facilities. Social History Type Response Date Comment [facility] e Tobacco smoking status SCIS VA-TOBACCO USER EVERY DAY 06/29/2020 [facility] History of tobacco use VA-TOBACCO USE WI 30 MIN OF WAKEUP 06/29/2020 [facility] History of tobacco use CURRENT TOBACCO USER 09/04/2017 [facility] History of tobacco use TOBACCO USER OFFERED MEDS 10/04/2016 [facility] History of tobacco use TOBACCO OFFERED STOP SMOKING CLINIC 11/05/2015 [facility] History of tobacco use TOBACCO OFFERED PT MEDS (PROVIDER) 09/16/2015 [facility] History of tobacco use TOBACCO OFFERED PT MEDS (PROVIDER) 08/28/2015 [facility] History of tobacco use TOBACCO OFFERED PT MEDS (PROVIDER) 10/30/2014 [facility] History of tobacco use TOBACCO OFFERED PT MEDS (PROVIDER) 08/31/2010 [facility] History of tobacco use TOBACCO OFFERED ST[facility] SMOKING CLINIC 11/23/2009 [facility] History of tobacco use TOBACCO OFFERED STOP SMOKING CLINIC 09/10/2008 do not want [facility] This section is an empty social history section. DoD
[2024-09-06 19:27] VITALS: BP 114/68; PULSE 119; RESP 18; O2SAT 98
--- NOTE | 2024-09-06 19:34 | ECG_ITS ---
[facility]: 2024-09-06 Pat Name: Mary Peter Department: Room: Gender: Female Admin Asst: : 1985 Requested By: Marilin Lerner Order Number: [id number] Gambino MD: Emmanuel Garnett M.D. Measurements Intervals [place] Rate: 98 P: 41 WV: 143 QRS: 61 QRSD: 82 T: 42 QT: 335 QTc: 428 Interpretive Statements SINUS RHYTHM Compared to ECG 09/18/2023 08:53:57 T-wave abnormality no longer present Electronically Signed On 09-10-2024 14:59:36 CDT by Emmanuel Garnett M.D. [email or web address]
[2024-09-06 20:06] LABS: Hematocrit 37.9 % (36-47); Hemoglobin 12.10 g/dL (11.27-16.99); Mean Corpuscular HGB Conc 31.9 g/dL (30-55); Mean Corpuscular Hemoglobin 26.4 pg (27-33); Mean Corpuscular Volume 82.8 fl (85-98); Nucleated Red Blood Cells % 0 %; Platelet Count 379 10^3/cmm (157-399); Red Blood Count 4.58 10^6/uL (3.85-5.65); White Blood Count 6.33 10^3/uL (3.29-11.43)
[2024-09-06 20:06] LABS: Glucose Urine UA Negative (Normal); HCG Qualitative Urine. Negative (Negative); Nitrate Urine Positive (Negative)
[2024-09-06 20:11] LABS: Add Urine Microscopic? YES
[2024-09-06 20:13] LABS: PCP Screen Urine Negative (Negative)
[2024-09-06 20:14] LABS: Specific Gravity, Urine 1.033 (1.005-1.030)
[2024-09-06 20:35] LABS: Alanine Aminotransferase 13 U/L (0-33); Albumin Level 4.2 g/dL (3.5-5.2); Alcohol Level 155 mg/dL (0-10); Alkaline Phosphatase 71 U/L (35-105); Anion Gap 20.0 (5-19); Aspartate Amino Transferase 16 U/L (0-32); Blood Urea Nitrogen 15 mg/dL (6-20); Calcium 9.1 mg/dL (8.5-10.5); Carbon Dioxide 21 mmol/L (22-29); Chloride 109 mmol/L (98-107); Globulin 3.0 g/dL (1.3-4.6); Glucose 86 mg/dL (65-115); Osmolality Calculated 302 mOsm/kg (285-295); Potassium 4.0 mmol/L (3.5-5.1); Sodium 146 mmol/L (136-145); Thyroid Stimulating Hormone 1.65 uIU/mL (0.27-4.20); Total Protein 7.2 g/dL (6.6-8.7)
[2024-09-06 20:39] LABS: Acetaminophen < 5.0 ug/mL (10-30); Salicylate < 0.3 mg/dL (3-10)
[2024-09-06] MEDS: cefTRIAXone 1,000 mg SDV 1000 MG IVP (21:03)
[2024-09-06 21:41] VITALS: BP 122/84; PULSE 86; RESP 16; O2SAT 96
== END 2024-09-06 21:42 | disposition home or self-care (01) ==
PROVIDERS: Emergency Provider Emergency Medicine; PCP Family Medicine
DX: E87.0 Hyperosmolality and hypernatremia; E86.0 Dehydration; F10.129 Alcohol abuse with intoxication, unspecified; Y90.6 Blood alcohol level of 120-199 mg/100 ml; N39.0 Urinary tract infection, site not specified
CPT/HCPCS: 36415; 80053; 80306; 80307; 81001; 81025; 84443; 85025; 87086; 93005; 96361; 96374; 99284; J0696; J7030